=== PATIENT | female | born 1965 | race Caucasian/White ===

== ENCOUNTER 2017-08-31 20:46 | Emergency (ER) | payer SELFPAY ==
--- NOTE | 2017-08-31 20:53 | PDOC ---
History of Present Illness - General Chief Complaint: Weakness Stated Complaint: RT SIDE WEAKNESS & VOMITING Time Seen by Provider: 08/31/17 20:51 Discharge Disposition - Discharge Dispostion Condition at time of disposition: Critical - Referrals - Patient Instructions - Post Discharge Activity
--- NOTE | 2017-08-31 20:55 | PDOC ---
Attending Attestation - Physicial Exam PE: 08/31/17 22:19 General Appearance: (+) Right sided facial droop. Head: Atraumatic Eyes: Pupils equal reactive round, extraocular movement intact Cardiac: Regular rate and rhythm, no murmurs, no rubs, no gallops Lungs: Clear to auscultation bilateral, good air movement bilaterally Abdomen: Soft, nondistended, normal bowel sounds, nontender to palpation Extremities: (+) Profound hemiplegia to the lower extremities. No edema. Skin: Warm and dry, no rashes or lesions, no rash, no petechiae Neuro: See NIHSS. Psych: Normal mood, normal affect - Critical Care Time Total Critical Care Time: 60 Critical Care Statement: The care of this patient involved high complexity decision making to prevent further life threatening deterioration of the patient 's condition and/or to evaluate & treat vital organ system(s) failure or risk of failure. - Medical Decision Making 08/31/17 21:24 Imaging: HEAD CT FINDINGS: There is cerebral atrophy. Chronic microvascular ischemic changes are noted. *Approximately 4.5 cm x 3 cm x 3.4 cm parenchymal hemorrhage in the left mirian- thalamic region with adjacent cerebral edema. The hemorrhage extends into the left lateral ventricle, frontal horn of the right lateral ventricle, third ventricle, and slightly into the fourth ventricle. There is approximately 3 mm left to right subfalcine herniation. No uncal or transtentorial herniation at this time. This could potentially represent a hemorrhagic lacunar infarction. The visualized aspect of the paranasal sinuses and mastoid air cells are remarkable for tiny polyp or cyst in the right maxillary antrum. No acute fracture. Reported by: Dr. Raimundo Gipson 08/31/17 21:50 Transfer to [facility] initiated. <Cindy Qureshi - Last Filed: 08/31/17 22:19> - Resident Resident Name: Arturo Eaton - ED Attending Attestation I have performed the following: I have examined & evaluated the patient, The case was reviewed & discussed with the resident, I agree w/resident's findings & plan, Exceptions are as noted - HPI HPI: 08/31/17 20:55 52-year-old female brought in by ambulance after developing right-sided weakness and vomiting. Brought in by ambulance with vomitus on her shirt with right sided facial droop and right extremity weakness. Past medical history of hypertension and she's not been taking her blood pressure medicines. She did have a past stroke, but the family said she had no residual from this that prior stroke - Medical Decision Making 08/31/17 22:[address] Brown child's neurosurgery who recommended transfer to neurosurgical ICU. Spoke to neurosurgical fellow, Dr. Cross, who accepted patient Family agrees with transfer. Patient was intubated to protect her airway with 7.5 ET tube and placed on a vent. Next x-ray ordered to confirm placement. Bilateral breath sounds on lung exam. Vent settings FiO2 is 40%, PEEP equal to 5, tidal VOLUME equal to 350,RR=16 08/31/17 22:26,switched from labetolol to nicardipine PT ON NICARDIPINE DRIP and tranfer team here <Joann Quispe - Last Filed: 08/31/17 22:27> NIH Stroke Scale - Last Known Well Date/Time & Onset Date Last Known Well: 08/31/17 Time Last Known Well: 20:00 - Initial Evaluation Level of consciousness: Alert Ask patient the month and their age: Answers one correctly Ask patient to open & close eyes; make fist and let go: Obeys one correctly Best gaze (horizontal eye movement): Normal Visual field testing: No visual field loss Facial paresis (Show teeth/raise eyebrows/close eyes tight): Partial paralysis ( total or near paralysis of lower face) Motor Function: Left Arm: Normal Motor Function: Right Arm: No effort against gravity Motor Function: Left Leg: Normal (extends leg 30 degrees for 5 seconds without drift) Motor Function: Right Leg: No movement Sensory(Use pinprick test arms,legs,trunk,face/side to side): Mild to moderate decrease in sensation Best language (Describe picture, name items, read sentences): Mild to moderate aphasia Dysarthria (read several words): Mild to moderate slurring of words Extinction and Inattention: Inattention or extinction bilaterally to one of the sensory modalities - Total Score NIH Stroke Scale Score: 15 <Joann Quispe - Last Filed: 08/31/17 22:27>
[2017-08-31] MEDS ORDERED: SODIUM CHLORIDE 1,000 ML IV SCH (21:00)
[2017-08-31] MEDS ORDERED: LABETALOL HCL 5 MG/1 ML (200MG/40ML VIAL) IVPB ONE ×2 (21:11→21:24)
[2017-08-31] MEDS ORDERED: levETIRAcetam 500 MG/5 ML INJECTION VIAL IVPB ONE ×2 (21:15)
[2017-08-31] MEDS ORDERED: RAPID SEQUENCE INTUBATION KIT NR ONE (21:26)
[2017-08-31 21:35] LABS: EOS % 1.5 % (0-4.5); HEMOGLOBIN 12.7 GM/dL (10.7-15.3); LYMPH % 26.3 % (8-40); MCH 27.8 pg (25.7-33.7); MCHC 32.7 g/dl (32.0-36.0); MEAN PLT VOLUME 9.2 fl (7.5-11.1); MONO % 5.7 % (3.8-10.2); NEUT % 65.5 % (42.8-82.8); PLATELET COUNT 317 K/MM3 (134-434); RBC 4.58 M/mm3 (3.60-5.2); RDW 14.2 % (11.6-15.6); WHITE BLOOD COUNT 11.5 K/mm3 (4.0-10.0)
[2017-08-31] MEDS ORDERED: PROPOFOL 1,000,000 MCG/100 ML VIAL ONE ×2 (21:38→22:18)
[2017-08-31 21:49] LABS: INR 1.04 (0.82-1.09); PROTHROMBIN TIME (PATIENT) 11.7 SEC (9.98-11.88)
[2017-08-31 21:52] VITALS: BMI 23.1
[2017-08-31] MEDS ORDERED: PROPOFOL 200 MG/20 ML VIAL IVPUSH ONE ×4 (22:07→22:08)
[2017-08-31] MEDS ORDERED: SUCCINYLCHOLINE CHLORIDE 200 MG/10 ML VIAL IVPUSH STA (22:20)
[2017-08-31] MEDS ORDERED: ETOMIDATE 40 MG/20 ML VIAL IVPUSH ONE (22:20)
[2017-08-31] MEDS ORDERED: LABETALOL HCL 5 MG/1 ML (100MG/20 ML VIAL) IVPUSH ONE (22:21)
--- NOTE | 2017-08-31 22:22 | PDOC ---
History of Present Illness - General Chief Complaint: Weakness Stated Complaint: RT SIDE WEAKNESS & VOMITING Time Seen by Provider: 08/31/17 20:51 - History of Present Illness Initial Comments: 08/31/17 22:21 Ms. Ford is a 52 yo female w/ pmh of prior stroke who presents via EMS after she was observed to fall down while at a family barbeque. Per family this occured at 1999 and afterwards she was having difficulty using her right upper and lower extremities. EMS was called and on presentation to ER she had started vomiting and was complaining of headache. tPA Exclusion Checklist 0-3hr - Time Elapsed Date last known well: 08/31/17 Time last known well: 20:00 Elaspsed time: Day(s) and 2 Hour(s) and 33 Minutes - Thrombolytic Therapy Candidate Is the patient eligible for Thrombolytic Therapy?: No - Exclusion Criteria 0-3hr SBP greater than 185 or DBP greater than 110mmHg despite tx: Yes Recent IC/spinal surgery,head trauma or stroke w/in last 3mo: No Hx of previous IC hemorrhage, IC neoplasm, AVM or aneurysm: No Active internal bleeding: Yes Blding diathesis(low plt ct, inc PTT,INR>1.7 or use of NOAC): No Symptoms suggest subarachnoid hemorrhage: No CT demonstrates multilobar infarct(>1/3 cerebral hemiphere): No Arterial puncture at noncompressible site in previous 7 days: No Blood glucose concentration less than 50mg/dL (2.7mmol/L): No - Relative Exclusion Criteria 0-3h Life expectancy <1yr/severe co-morbid illness/[employer] on admit: No : No Patient/family refused: No Rapid improvement: No Stroke severity too mild: No Recent acute DC (w/in previous 3 months): No Seizure at onset with postictal residual neuro impairments: No Major surgery or serious trauma w/in previous 14 days: No Recent GI or hemorrhage (w/in previous 21 days): No - Ineligibility reason(s) Reasons No tPA given: See reason(s) noted above (Massive hemorrhage noted on CT) Past History - Past Medical History Allergies/Adverse Reactions: Allergies Allergy/AdvReac Type Severity Reaction Status Date / Time No Known Allergies Allergy Verified 08/31/17 21:10 Home Medications: Ambulatory Orders NK [No Known Home Medication] 08/31/17 - Suicide/Smoking/Psychosocial Hx Smoking History: Unknown if ever smoked Have you smoked in the past 12 months: No Information on smoking cessation initiated: No Hx Alcohol Use: No Drug/Substance Use Hx: No Review of Systems - Review of Systems Comments:: 08/31/17 22:17 As above. Patient reporting right sided weakness. *Physical Exam - Vital Signs Last Vital Signs Temp Pulse Resp BP Pulse Ox 98.2 F 76 18 152/131 95 08/31/17 20:48 08/31/17 20:48 08/31/17 21:53 08/31/17 20:48 08/31/17 20:48 - Physical Exam Comments: 08/31/17 22:22 GENERAL: Patient somnolent and vomiting. Able to follow simple commands at presentation. HEAD: +Right sided facial droop. No signs of trauma, normocephalic, atraumatic EYES: PERRLA, EOMI, sclera anicteric, conjunctiva clear ENT: Auricles normal inspection, hearing grossly normal, nares patent, oropharynx clear without exudates. Moist mucosa NECK: Normal ROM, supple, no lymphadenopathy, JVD, or masses LUNGS: No distress, speaks full sentences, clear to auscultation bilaterally HEART: Regular rate and rhythm, normal S1 and S2, no murmurs, rubs or gallops, peripheral pulses normal and equal bilaterally. ABDOMEN: Soft, nontender, normoactive bowel sounds. No guarding, no rebound. No masses EXTREMITIES: +Right upper and lower extremity weakness. Normal inspection, Normal range of motion, no edema. No clubbing or cyanosis. NEUROLOGICAL: +Unable to assess SKIN: Warm, Dry, normal turgor, no rashes or lesions noted. ED Treatment Course - LABORATORY CBC & Chemistry Diagram: 08/31/17 09:20 08/31/17 09:20 - ADDITIONAL ORDERS Additional order review: Laboratory Results 08/31/17 08/31/17 09:20 09:20 PT with INR 11.70 INR 1.04 Sodium Cancelled Potassium Cancelled Chloride Cancelled Carbon Dioxide Cancelled Anion Gap Cancelled BUN Cancelled Creatinine Cancelled Creat Clearance w eGFR Cancelled Random Glucose Cancelled Calcium Cancelled Total Bilirubin Cancelled AST Cancelled ALT Cancelled Alkaline Phosphatase Cancelled Creatine Kinase Cancelled Troponin I Cancelled Total Protein Cancelled Albumin Cancelled Triglycerides Cancelled Cholesterol Cancelled Total LDL Cholesterol Cancelled HDL Cholesterol Cancelled 08/31/17 09:20 RBC 4.58 MCV 85.0 MCHC 32.7 RDW 14.2 MPV 9.2 Neutrophils % 65.5 Lymphocytes % 26.3 Monocytes % 5.7 Eosinophils % 1.5 Basophils % 1.0 Medical Decision Making - Medical Decision Making 08/31/17 22:23 Ms. Ford is a 52 yo female w/ pmh as described who presented with symptoms concerning for acute stroke. Stroke protocol activated which revealed left sided hemorrhage. Patient intubated using RSI for airway protection and preparations made for transfer to [facility] for neurosurgical intervention. Patient put on keppra, propofol for sedation, and nicardipine and transferred. *DC/Admit/Observation/Transfer Diagnosis at time of Disposition: Cerebral hemorrhage, acute - Discharge Dispostion Disposition: TRANSFER ACUTE CARE/OTHER HOSP Condition at time of disposition: Critical - Referrals - Patient Instructions - Post Discharge Activity - Transfer to Acute Care Facility Receiving Facility: [facility]. Accepting Physician:: Dr. De León Transfer comment: 08/31/17 22:34 Needs Neurosurgery / ICU
[2017-08-31 22:45] LABS: URINE APPEARANCE SLCLOUDY; URINE BILIRUBIN NEGATIVE (<2.0 mg/dL); URINE BLOOD 2+ (NEGATIVE); URINE COLOR YELLOW; URINE GLUCOSE (UA) NEGATIVE (NEGATIVE); URINE KETONE NEGATIVE (NEGATIVE); URINE LEUK ESTERASE NEGATIVE (NEGATIVE); URINE NITRITE NEGATIVE (NEGATIVE); URINE UROBILINOGEN NEGATIVE mg/dL (0.2-1.0)
[2017-08-31 22:46] LABS: URINE PROTEIN 2+ (NEGATIVE)
[2017-08-31 23:03] LABS: EPI CELLS RARE /HPF (FEW); URINE MUCUS RARE
[2017-09-01 00:13] VITALS: PULSE 89; TEMP 98.9
[2017-09-01 00:16] VITALS: BP 207/110
--- NOTE | 2017-09-01 11:06 | EKG ---
Test Reason : Blood Pressure : / mmHG Vent. Rate : 073 BPM Atrial Rate : 073 BPM P-R Int : 150 ms QRS Dur : 084 ms QT Int : 436 ms P-R-T Axes : 055 028 024 degrees QTc Int : 480 ms NORMAL SINUS RHYTHM PROLONGED QT ABNORMAL ECG NO PREVIOUS ECGS AVAILABLE Confirmed by JESSICA LOWRY MD ([id number]) on 09/01/2017 11:05:48 AM Referred By: Confirmed By:JESSICA LOWRY MD
== END 2017-08-31 22:30 | disposition short-term general hospital (02) ==
LOC: JER 20:46
PROC: 3E033NZ Introduction of Analgesics, Hypnotics, Sedatives into Peripheral Vein, Percutaneous Approach (ICD-10-PCS; principal; 2017-08-31)
PROC: 3E033GC Introduction of Other Therapeutic Substance into Peripheral Vein, Percutaneous Approach (ICD-10-PCS; 2017-08-31)
PROC: 3E0337Z Introduction of Electrolytic and Water Balance Substance into Peripheral Vein, Percutaneous Approach (ICD-10-PCS; 2017-08-31)
DX: I61.9 Nontraumatic intracerebral hemorrhage, unspecified (principal); W18.39XA Other fall on same level, initial encounter; Y93.89 Activity, other specified; Y92.89 Other specified places as the place of occurrence of the external cause
CPT/HCPCS: 36415; 70450-TC; 71045-TC-FY; 81003; 81015; 85025; 85610; 93005; 93010; 99284-25; J7030